=== PATIENT | male | born 1975 | race Caucasian/White ===

== ENCOUNTER 2021-01-09 07:09 | Emergency (ER) | payer BC, MEDICAID ==
[~2021-01-09] VITALS: Ht 185.4 cm; Wt 96.0 kg
[2021-01-09 07:11] VITALS: BP 148/97
[2021-01-09] MEDS ORDERED: LIDOCAINE HCL/PF 1% 10 MG/ML 5ML VIAL IJ ONE (07:45)
[2021-01-09] MEDS ORDERED: TETANUS, DIPHTHERIA, PERTUSSIS VAC/PF 0.5ML (>7YR OLD) IM ONE (07:45)
[2021-01-09] MEDS ORDERED: ACETAMINOPHEN 325MG TABLET PO ONE (08:00)
[2021-01-09] MEDS ORDERED: TOPUD PO (08:19)
== END 2021-01-09 10:00 | disposition home or self-care (01) ==
LOC: ER 07:09
DX: S01.81XA Laceration without foreign body of other part of head, initial encounter (principal); W18.2XXA Fall in (into) shower or empty bathtub, initial encounter; Y93.F1 Activity, caregiving, bathing; Y92.9 Unspecified place or not applicable; Z98.890 Other specified postprocedural states
CPT/HCPCS: 12015; 90471; 90715; 99283; A4217; J3490; Z7610